=== PATIENT | male | born 1975 | race Caucasian/White ===

== ENCOUNTER 2023-02-24 08:42 | Emergency (ER) | payer MEDICAID ==
[~2023-02-24] VITALS: Ht 177.8 cm; Wt 91.3 kg
[2023-02-24 08:55] VITALS: O2SAT 100
[2023-02-24 10:49] VITALS: BP 127/86; PULSE 83; RESP 18; TEMP 98.5
== END 2023-02-24 10:50 | disposition home or self-care (01) ==
LOC: ER 08:42
DX: Z22.7 Latent tuberculosis (principal)
CPT/HCPCS: 71045; 99283